=== PATIENT | female | born 1950 | race Caucasian/White ===

== ENCOUNTER 2020-10-11 11:26 | Emergency (ER) | payer BC ==
[2020-10-11] MEDS ORDERED: Ketorolac 30 MG/ML SDV IVPUSH ONE (12:02)
[2020-10-11] MEDS ORDERED: Orphenadrine 60 MG/2 ML Inj IM ONE (12:05)
--- NOTE | 2020-10-11 12:18 | EDM.PDOC ---
ED HPI GENERAL MEDICAL PROBLEM - General Stated Complaint: SEVERE HIP PAIN Time Seen by Provider: 10/11/20 12:00 Source of Information: Reports: Patient, RN, RN Notes Reviewed History Limitations: Reports: No Limitations - History of Present Illness INITIAL COMMENTS - FREE TEXT/NARRATIVE: Patient presents to the ED via personal vehicle with complaints of left buttock/hip pain. The patient reports she first noted the pain six days ago, 10/06/20, following a full day of cutting for quilting; the patient reports she was bent over for long periods of time. She denies any mechanism of past or recent injury to the area. She was evaluated in the clinic yesterday, 10/10/20, as her back pain had been progressively worsening. She states she was given a "shot" and a Medrol dose pack from which she has taken 8mg. In addition to the prescribed medications she has taken one dose of Tylenol 1000mg and one dose of Percocet 5-325mg. She states the pain is localized to the left buttock and hip, it does not radiate. She characterizes the pain as sharp in nature and rates it as a 9/10; she reports the pain as worse than yesterday. She denies loss of motor or sensory function to the extremity, bowel/bladder incontinence, or saddle paraesthesia. Right Buttock Pain Score (Numeric/FACES): 5 - Related Data Allergies Allergy/AdvReac Type Severity Reaction Status Date / Time No Known Allergies Allergy Verified 08/20/19 12:07 Home Meds: Home Meds Levocetirizine Dihydrochloride 5 mg PO DAILY 10/11/20 [History] Venlafaxine HCl [Venlafaxine ER] 37.5 mg PO DAILY 10/11/20 [History] methylPREDNISolone [Methylprednisolone] 4 mg PO .ASDIRECTED 10/11/20 [History] traZODone HCl [Trazodone HCl] 50 mg PO BEDTIME 10/11/20 [History] Review of Systems - Review of Systems Review Of Systems: Comprehensive ROS is negative, except as noted in HPI. ED EXAM, GENERAL - Physical Exam Exam: See Below Exam Limited By: No Limitations General Appearance: Alert, Mild Distress (Pain to left hip) Respiratory/Chest: No Respiratory Distress, Lungs Clear, Normal Breath Sounds, No Accessory Muscle Use, Chest Non-Tender Cardiovascular: Normal Peripheral Pulses, Regular Rate, Rhythm, No Edema, No Gallop, No JVD, No Murmur, No Rub Peripheral Pulses: 2+: Radial (L), Radial (R), Dorsalis Pedis (L), Dorsalis Pedis (R) Back Exam: Muscle Spasm (To left buttock). No: Paraspinal Tenderness, Vertebral Tenderness Extremities: Limited Range of Motion (To left hip). No: Joint Swelling, Leg Pain, Redness Neurological: Alert, Oriented, CN II-XII Intact, Normal Cognition, No Motor/Sensory Deficits, Abnormal Gait Psychiatric: Normal Affect, Normal Mood Skin Exam: Warm, Dry, Intact, Normal Color, No Rash. No: Ecchymosis, Erythema, Jaundice, Mottled, Pallor, Petechiae Course - Vital Signs Last Recorded V/S: Last Vital Signs Temp 97.2 F 10/11/20 12:15 Pulse 78 10/11/20 12:15 Resp 16 10/11/20 12:15 BP 124/69 10/11/20 12:15 Pulse Ox 99 10/11/20 12:15 - Orders/Labs/Meds Meds: Medications Discontinued Medications Generic Name Dose Route Start Last Admin Trade Name Freq PRN Reason Stop Dose Admin Ketorolac Tromethamine 30 mg 10/11/20 12:02 10/11/20 12:18 Toradol IVPUSH 10/11/20 12:03 30 mg ONETIME ONE Administration Orphenadrine Citrate 60 mg 10/11/20 12:05 10/11/20 12:17 Norflex IM 10/11/20 12:06 60 mg ONETIME ONE Administration Tramadol HCl 50 mg 10/11/20 13:23 10/11/20 13:39 Ultram PO 10/11/20 13:24 50 mg ONETIME ONE Administration - Radiology Interpretation Free Text/Narrative:: [facility] [place] [facility] Final Radiology Report Call: [phone] assistance Online chat: [email or web address] Name: HERMAN FOSTER Age: 70Years F Date: 10/11/2020 SSN: -- : [id number] Study: CR HIP MIN 1V W PELVIS RT Requesting Physician: Ana Paula Laughlin Images: 2 Addl Studies: Provided Clinical History: Progressive pain to right, lateral hip Contrast: Contrast Medium: Contrast Amount: Contrast Method: CONFIDENTIALITY STATEMENT This report is intended only for use by the referring physician, and only in accordance with law. If you received this in error, call [phone]. Page 1 of 1 PROCEDURE INFORMATION: Exam: XR Right Hip with Pelvis when Performed Exam date and time: 10/11/2020 12:16 PM Age: 70 years old Clinical indication: Hip pain; Right hip; Additional info: Progressive pain to right, lateral hip TECHNIQUE: Imaging protocol: XR Right hip with pelvis when performed. Views: 1 view. COMPARISON: No relevant prior studies available. FINDINGS: Bones/joints: The bones are demineralized. Degenerative arthritis in both hips with joint space narrowing, worse on the. Degenerative arthritis visualized lower lumbar spine and pubic symphysis. No fracture identified. Soft tissues: Unremarkable. IMPRESSION: 1. No acute findings. 2. Degenerative arthritis lower lumbar spine, both hips, and pubic symphysis. Thank you for allowing us to participate in the care of your patient. Dictated and Authenticated by: Chayo Boudreaux MD 10/11/2020 12:39 PM Central Time ([place] & [place]) - Re-Assessments/Exams Free Text/Narrative Re-Assessment/Exam: 10/11/20 Patient reports minimal improvement in pain following Toradol 30mg IM and Norflex 60mg IM. Discussed findings of hip/pelvic xray which was unremarkable for acute injuries; degenerative arthritis noted to bilateral hips, lower lumbar spine, and pubic symphysis. Given history, exam, and lack of mechanism of injury will treat patient for acute muscle spasm. Case discussed with Lamont from [facility] PT who will call patient to schedule outpatient therapy. Supportive cares for acute spasm discussed, including heat, stretching and OTC lidocaine cream. Will treat acute pain with cyclobenzaprine and tramadol. Discussed plan of care with patient and her who both verbalized understanding and agreement with the plan of care. 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, lumbar region Degenerative arthritis of hip Qualifiers: Osteoarthritis type: unspecified Laterality: bilateral Qualified Code(s): M16.0 - Bilateral primary osteoarthritis of hip - Discharge Information *PRESCRIPTION DRUG MONITORING PROGRAM REVIEWED*: Yes *COPY OF PRESCRIPTION DRUG MONITORING REPORT IN PATIENT ALISA: Yes Instructions: Muscle Cramps and Spasms, [id number], Preventing Osteoarthritis, Adult Referrals: PCP,None [Primary Care Provider] - Forms: ED Department Discharge Additional Instructions: Rx: Cyclobenzaprine Rx: Ultram 1.) Physical Therapy will be contacting you regarding scheduling for tomorrow. 2.) Apply heat to affected area to help with muscle spasm. 3.) Continue with Medrol dose pack, as previously prescribed. 4.) You may also take Tylenol 1000mg, as pain persists. Sepsis Event Note (ED) - Focused Exam Vital Signs: Vital Signs Temp Pulse Resp BP Pulse Ox 10/11/20 12:15 97.2 F 78 16 124/69 99
--- NOTE | 2020-10-11 12:40 | CR ---
PROCEDURE INFORMATION: Exam: XR Right Hip with Pelvis when Performed Exam date and time: 10/11/2020 12:16 PM Age: 70 years old Clinical indication: Hip pain; Right hip; Additional info: Progressive pain to right, lateral hip TECHNIQUE: Imaging protocol: XR Right hip with pelvis when performed. Views: 1 view. COMPARISON: No relevant prior studies available. FINDINGS: Bones/joints: The bones are demineralized. Degenerative arthritis in both hips with joint space narrowing, worse on the. Degenerative arthritis visualized lower lumbar spine and pubic symphysis. No fracture identified. Soft tissues: Unremarkable. IMPRESSION: 1. No acute findings. 2. Degenerative arthritis lower lumbar spine, both hips, and pubic symphysis.
[2020-10-11] MEDS ORDERED: traMADol 50 MG Tab PO ONE (13:23)
== END 2020-10-11 14:10 | disposition home or self-care (01) ==
LOC: DL.ED 11:26
DX: M16.0 Bilateral primary osteoarthritis of hip (principal); M47.16 Other spondylosis with myelopathy, lumbar region; M62.838 Other muscle spasm; Z79.899 Other long term (current) drug therapy
CPT/HCPCS: 73501; 96372; 96374; 99283; A9270; J1885; J2360

== ENCOUNTER 2023-10-31 05:52 | Day surgery (SDC) | payer BC ==
[2023-10-31] MEDS ORDERED: Midazolam 1 MG/ML 2 ML SDV ONE (06:07)
[2023-10-31] MEDS ORDERED: fentaNYL 100 MCG/2 ML SDV ONE (06:07)
[2023-10-31] MEDS: Dextrose 5%-0.45% NaCl 1,000 ML IV SCH (06:15)
[2023-10-31] MEDS ORDERED: Dextrose 5%-0.45% NaCl 1,000 ML IV SCH (07:00)
[2023-10-31] MEDS: fentaNYL 100 MCG/2 ML SDV IV ONE ×2 (07:33→07:34)
[2023-10-31] MEDS: Midazolam 1 MG/ML 2 ML SDV IV ONE ×3 (07:34→07:43)
== END 2023-10-31 09:40 | disposition home or self-care (01) ==
LOC: DL.ENDO 05:52
PROVIDERS: ATTEND Internal Medicine Gastroenterology
DX: Z12.11 Encounter for screening for malignant neoplasm of colon (principal); K63.5 Polyp of colon; E78.2 Mixed hyperlipidemia; F41.9 Anxiety disorder, unspecified; Z79.899 Other long term (current) drug therapy; Z91.048 Other nonmedicinal substance allergy status
CPT/HCPCS: J2250; J3010; J7042